=== PATIENT | male | born 1935 | race Caucasian/White ===

== ENCOUNTER → 2017-09-24 | Outpatient (CLI) | payer OTHER ==
[~2017-09-24] MED LIST: ALTACE10 MG PO; ASPIR 8181 M1 PO; ATORVASTATIN CA40 MG PO; CALCIUM500 MG PO; FISH OIL 1,001000 M2 PO; LUPRON DEPOT11.25 MG IM; ZANTAC 150MG T150 MG PO
== END ==
LOC: RAD 14:50
DX: R05 Cough (principal)

== ENCOUNTER → 2019-05-14 | Outpatient (CLI) | payer OTHER | LOC: RAD 12:09 | DX: J98.4 Other disorders of lung (principal); M41.84 Other forms of scoliosis, thoracic region ==